=== PATIENT | male | born 1960 | race African-American/Black ===

== ENCOUNTER 2021-10-14 22:48 | Emergency (ER) | payer SELFPAY ==
[~2021-10-14] VITALS: Ht 175.3 cm; Wt 77.0 kg
[2021-10-15 04:13] VITALS: BP 135/85
== END 2021-10-15 04:15 | disposition home or self-care (01) ==
LOC: ER 22:48
DX: F10.129 Alcohol abuse with intoxication, unspecified (principal); Y90.9 Presence of alcohol in blood, level not specified; Z59.00 Homelessness unspecified
CPT/HCPCS: 82962; 99283